=== PATIENT | female | born 1940 | race Caucasian/White ===

== ENCOUNTER → 2017-10-06 | Outpatient (CLI) | payer MEDICARE ==
[~2017-10-06] MED LIST: ASPI-1012 PO; CALC-1038 PO; CALC-911 PO; FLAX1000 PO; HYDR-2132 PO; LEVO50TA11 PO; TRAM50TA4 PO; VITA400C70 PO
== END ==
LOC: OIH 11:34
PROVIDERS: ATTEND Internal Medicine
DX: S72.002A Fracture of unspecified part of neck of left femur, initial encounter for closed fracture (principal); R10.2 Pelvic and perineal pain; X58.XXXA Exposure to other specified factors, initial encounter; Y93.89 Activity, other specified; Y92.89 Other specified places as the place of occurrence of the external cause; Y99.8 Other external cause status
CPT/HCPCS: 73502; 73560

== ENCOUNTER 2017-10-12 15:42 | Inpatient (IN) | payer MEDICARE ==
[~2017-10-12] VITALS: Ht 152.4 cm; Wt 61.3 kg
[2017-10-12 16:34] LABS: BASOPHILS % (AUTO) 1.4 % (0.0-5.0); EOSINOPHILS % (AUTO) 3.6 % (0.0-8.0); HEMATOCRIT 34.3 % (36-48); LYMPHOCYTES % (AUTO) 20.7 % (21.0-51.0); MEAN CORPUSCULAR HEMOGLOBIN 33.5 pg (27.0-33.0); MEAN CORPUSCULAR HGB CONC 36.6 g/dL (32.0-36.0); MEAN CORPUSCULAR VOLUME 91.5 fL (79-99); NEUTROPHILS % (AUTO) 66.3 % (40.0-77.0); PLATELET COUNT (AUTO) 322 K/uL (130-400); RED BLOOD CELL COUNT(AUTO) 3.75 MIL/uL (4.00-5.50); RED CELL DISTRIBUTION WIDTH 13.5 % (11.0-15.5); WHITE BLOOD COUNT (AUTO) 5.4 K/uL (4.8-10.8)
[2017-10-12 16:41] LABS: CREATININE 0.9 mg/dL (0.5-1.5); POTASSIUM 3.3 mmol/L (3.5-5.1)
[2017-10-12 17:00] LABS: INR 0.96 (0.85-1.15); PARTIAL THROMBOPLASTIN TIME 26.1 SEC (26.3-35.5); PROTHROMBIN TIME 10.1 SEC (9.6-11.6)
[2017-10-12] MEDS ORDERED: TRAMADOL HCL 50 MG TABLET ONE (17:38)
[2017-10-12] MEDS ORDERED: ACETAMINOPHEN EXTRA STRENGTH 500 MG TABLET ONE (21:01)
[2017-10-12 22:24] VITALS: BP 135/77
[2017-10-12] MEDS ORDERED: HYDROMORPHONE HCL 0.5 MG/0.5 ML ML ONE (23:46)
[2017-10-13] VITALS (20 sets, daily range): BP systolic 112–143; BP diastolic 56–84
[2017-10-13] MEDS ORDERED: ONDANSETRON HCL 4 MG/2 ML VIAL IVP PRN (01:00)
[2017-10-13] MEDS ORDERED: ACETAMINOPHEN EXTRA STRENGTH 500 MG TABLET PO PRN (01:00)
[2017-10-13] MEDS: HYDROMORPHONE HCL 0.5 MG/0.5 ML ML IVP PRN ×3 (04:23→18:07)
[2017-10-13] MEDS ORDERED: CALC-1038 PO (04:48)
[2017-10-13] MEDS ORDERED: VITA400C70 PO (04:48)
[2017-10-13] MEDS ORDERED: FLAX1000 PO (04:48)
[2017-10-13] MEDS ORDERED: LEVO50TA11 PO (04:48)
[2017-10-13] MEDS ORDERED: TRAM50TA4 PO (04:48)
[2017-10-13] MEDS ORDERED: TRAMADOL HCL 50 MG TABLET PO PRN (05:00)
[2017-10-13] MEDS: TRANEXAMIC ACID 1,000 MG in SODIUM CHLORIDE 0.9% 100 ML IV SCH ×2 (06:00→20:16)
[2017-10-13 06:09] LABS: INR 0.97 (0.85-1.15); PARTIAL THROMBOPLASTIN TIME 26.8 SEC (26.3-35.5); PROTHROMBIN TIME 10.2 SEC (9.6-11.6)
[2017-10-13 06:10] LABS: HEMATOCRIT 34.6 % (36-48); MEAN CORPUSCULAR HEMOGLOBIN 32.6 pg (27.0-33.0); MEAN CORPUSCULAR HGB CONC 35.1 g/dL (32.0-36.0); MEAN CORPUSCULAR VOLUME 92.9 fL (79-99); PLATELET COUNT (AUTO) 310 K/uL (130-400); RED BLOOD CELL COUNT(AUTO) 3.72 MIL/uL (4.00-5.50); RED CELL DISTRIBUTION WIDTH 13.9 % (11.0-15.5)
[2017-10-13 06:21] LABS: CREATININE 0.8 mg/dL (0.5-1.5); POTASSIUM 3.4 mmol/L (3.5-5.1)
[2017-10-13] MEDS ORDERED: POTASSIUM CHLORIDE 20MEQ/100ML 100 ML IV PRN ×2 (06:45→16:00)
[2017-10-13] MEDS ORDERED: LIDOCAINE HCL-MPF 1% 2ML VIAL IVP PRN ×2 (06:45→16:00)
[2017-10-13] MEDS: LEVOTHYROXINE 50 MCG TABLET PO SCH (07:30)
[2017-10-13] MEDS ORDERED: SODIUM CHLORIDE 0.9% 1000ML 1,000 ML IV ONE (08:12)
[2017-10-13] MEDS ORDERED: CALC-911 PO (08:57)
[2017-10-13] MEDS ORDERED: CALCIUM CARBONATE 500 MG TABLET PO SCH (09:00)
[2017-10-13] MEDS: FLAXSEED OIL 1000 MG PO SCH (09:00)
[2017-10-13] MEDS: CALCIUM 600 + VITAMIN D 400 TABLET PO SCH (09:00)
[2017-10-13] MEDS: VITAMIN E 400 UNIT CAPSULE PO SCH (09:00)
[2017-10-13] MEDS: CEFAZOLIN SODIUM 1 GM VIAL IVP SCH ×3 (12:00→21:16)
[2017-10-13] MEDS ORDERED: LACTATED RINGERS 1000ML 1,000 ML IV ONE (12:32)
[2017-10-13] MEDS ORDERED: SUCCINYLCHOLINE 200MG/10ML SYR ONE (13:02)
[2017-10-13] MEDS ORDERED: ONDANSETRON HCL 4 MG/2 ML VIAL ONE (13:02)
[2017-10-13] MEDS ORDERED: LIDOCAINE PF 2% 5ML ABBOJECT ONE (13:02)
[2017-10-13] MEDS ORDERED: GLYCOPYRROLATE 0.2 MG/ML 5 ML VIAL ONE (13:02)
[2017-10-13] MEDS ORDERED: DEXAMETHASONE SOD PHOSPHATE 10MG/ML 1ML VIAL ONE (13:02)
[2017-10-13] MEDS ORDERED: PROPOFOL 10 MG/ML 20ML VIAL IV ONE (13:03)
[2017-10-13] MEDS ORDERED: MIDAZOLAM HCL 1 MG/ML 2ML VIAL ONE ×2 (13:03→13:41)
[2017-10-13] MEDS ORDERED: FENTANYL CITRATE PF 50 MCG/1 ML 2ML VIAL ONE (13:04)
[2017-10-13] MEDS ORDERED: CEFAZOLIN SODIUM 1 GM VIAL ONE (13:06)
[2017-10-13] MEDS ORDERED: TRANEXAMIC ACID 1000MG/10ML IV ONE (13:06)
[2017-10-13] MEDS ORDERED: ROPIVACAINE 0.5% 5MG/ML 30ML IJ ONE (13:17)
[2017-10-13] MEDS: SODIUM CHLORIDE 0.9% 1000ML 1,000 ML IV SCH (15:54)
[2017-10-13] MEDS ORDERED: KETOROLAC TROMETHAMINE 15MG/ML IV PRN (16:00)
[2017-10-13] MEDS ORDERED: PROMETHAZINE HCL 25 MG/ML 1ML AMPULE IM PRN (16:00)
[2017-10-13] MEDS ORDERED: DiphenhydrAMINE HCL 50 MG/ML VIAL IVP PRN (16:00)
[2017-10-13] MEDS ORDERED: POTASSIUM CHLORIDE 20 MEQ ERTAB PO PRN (16:00)
[2017-10-13] MEDS ORDERED: FERROUS FUMARATE 324 MG TABLET PO PRN (16:00)
[2017-10-13] MEDS ORDERED: HYDROCODONE/ACETAMINOPHEN 5/325 MG TAB PO PRN (16:00)
[2017-10-13] MEDS ORDERED: DIPHENHYDRAMINE HCL 25 MG CAPSULE PO PRN (16:00)
[2017-10-13] MEDS ORDERED: CALCIUM CARBONATE 500 MG TABLET PO PRN (16:00)
[2017-10-13] MEDS ORDERED: TEMAZEPAM 15 MG CAPSULE PO PRN (16:00)
[2017-10-13] MEDS ORDERED: POTASSIUM CHLORIDE 10% ELIXIR 20 MEQ/15 ML UDCUP PO PRN (16:00)
[2017-10-13] MEDS ORDERED: MEPERIDINE-PF 50 MG/ML SYG ONE (16:24)
[2017-10-13] MEDS: CELECOXIB 200 MG CAP PO SCH (21:00)
[2017-10-13] MEDS: ASPIRIN 325 MG TABLET PO SCH (21:00)
[2017-10-13] MEDS ORDERED: CEFAZOLIN 2GM / 50 ML 50 ML IV SCH (21:00)
[2017-10-13] MEDS: FAMOTIDINE 20MG TAB 20 MG TAB PO SCH (21:16)
[2017-10-13] MEDS: HYDROCODONE/ACETAMINOPHEN 5/325 MG TAB PO PRN (21:19)
[2017-10-14 00:21] VITALS: BP 127/67
[2017-10-14] MEDS: SODIUM CHLORIDE 0.9% 1000ML 1,000 ML IV SCH ×2 (02:18→11:54)
[2017-10-14 04:00] VITALS: BP 138/83
[2017-10-14] MEDS: HYDROCODONE/ACETAMINOPHEN 5/325 MG TAB PO PRN (05:06)
[2017-10-14] MEDS: LEVOTHYROXINE 50 MCG TABLET PO SCH (05:07)
[2017-10-14] MEDS: CEFAZOLIN SODIUM 1 GM VIAL IVP SCH (05:14)
[2017-10-14 05:37] LABS: HEMATOCRIT 32.3 % (36-48); MEAN CORPUSCULAR HEMOGLOBIN 33.7 pg (27.0-33.0); MEAN CORPUSCULAR HGB CONC 36.5 g/dL (32.0-36.0); MEAN CORPUSCULAR VOLUME 92.3 fL (79-99); NUCLEATED RED BLOOD CELLS 0.1 % (0.0-0.19); PLATELET COUNT (AUTO) 289 K/uL (130-400); RED CELL DISTRIBUTION WIDTH 13.4 % (11.0-15.5); WHITE BLOOD COUNT (AUTO) 8.5 K/uL (4.8-10.8)
[2017-10-14 05:48] LABS: CREATININE 0.8 mg/dL (0.5-1.5); POTASSIUM 3.6 mmol/L (3.5-5.1)
[2017-10-14] MEDS ORDERED: HYDROMORPHONE PCA 10 MG/50 ML 50 ML IV PRN (08:30)
[2017-10-14] MEDS ORDERED: NALOXONE HCL 0.4 MG/1 ML ML IVP PRN (08:30)
[2017-10-14] MEDS: ASPIRIN 325 MG TABLET PO SCH ×2 (08:44→21:08)
[2017-10-14] MEDS: CELECOXIB 200 MG CAP PO SCH ×2 (08:44→21:09)
[2017-10-14] MEDS: CALCIUM 600 + VITAMIN D 400 TABLET PO SCH (08:46)
[2017-10-14] MEDS: VITAMIN E 400 UNIT CAPSULE PO SCH (08:46)
[2017-10-14] MEDS: FAMOTIDINE 20MG TAB 20 MG TAB PO SCH ×2 (08:47→21:09)
[2017-10-14] MEDS: POLYETHYLENE GLYCOL 3350 17 GM POWD.PACK PO SCH (08:47)
[2017-10-14] MEDS: POTASSIUM CHLORIDE 20 MEQ ERTAB PO PRN ×2 (08:47→18:04)
[2017-10-14] MEDS: FLAXSEED OIL 1000 MG PO SCH (08:48)
[2017-10-14] MEDS: HYDROMORPHONE HCL 0.5 MG/0.5 ML ML IVP PRN (08:49)
[2017-10-14 08:50] VITALS: BP 120/57
[2017-10-14 11:54] VITALS: BP 116/64
[2017-10-14] MEDS: PSYLLIUM SEED 1 EACH PACKET PO SCH (12:50)
[2017-10-14 16:27] VITALS: BP 100/51
[2017-10-14 19:43] VITALS: BP 95/50
[2017-10-14] MEDS: TRANEXAMIC ACID 1,000 MG in SODIUM CHLORIDE 0.9% 100 ML IV SCH (20:07)
[2017-10-15] VITALS: BP 110/63
[2017-10-15] MEDS ORDERED: SODIUM CHLORIDE 0.9% 500ML 500 ML IV ONE (02:31)
[2017-10-15 04:24] VITALS: BP 117/71
[2017-10-15] MEDS: LEVOTHYROXINE 50 MCG TABLET PO SCH (06:36)
[2017-10-15 07:30] VITALS: BP 122/64
[2017-10-15] MEDS: POTASSIUM CHLORIDE 10% ELIXIR 20 MEQ/15 ML UDCUP PO PRN ×2 (08:48→12:16)
[2017-10-15] MEDS: POLYETHYLENE GLYCOL 3350 17 GM POWD.PACK PO SCH (08:48)
[2017-10-15] MEDS: VITAMIN E 400 UNIT CAPSULE PO SCH (08:48)
[2017-10-15] MEDS: FAMOTIDINE 20MG TAB 20 MG TAB PO SCH ×2 (08:49→20:23)
[2017-10-15] MEDS: CALCIUM 600 + VITAMIN D 400 TABLET PO SCH (08:49)
[2017-10-15] MEDS: CELECOXIB 200 MG CAP PO SCH ×2 (08:49→20:23)
[2017-10-15] MEDS: ASPIRIN 325 MG TABLET PO SCH ×2 (08:49→20:23)
[2017-10-15] MEDS: FLAXSEED OIL 1000 MG PO SCH (08:50)
[2017-10-15 11:00] VITALS: BP 102/68
[2017-10-15] MEDS: PSYLLIUM SEED 1 EACH PACKET PO SCH (12:15)
[2017-10-15 16:00] VITALS: BP 108/63
[2017-10-15] MEDS ORDERED: BISACODYL 5 MG TABLET.DR PO PRN (16:00)
[2017-10-15 20:33] VITALS: BP 111/66
[2017-10-16] VITALS: BP 117/68
[2017-10-16 04:00] VITALS: BP 120/65
[2017-10-16] MEDS: TRANEXAMIC ACID 1,000 MG in SODIUM CHLORIDE 0.9% 100 ML IV SCH (05:36)
[2017-10-16] MEDS: LEVOTHYROXINE 50 MCG TABLET PO SCH (06:50)
[2017-10-16 07:36] VITALS: BP 129/71
[2017-10-16] MEDS ORDERED: SODIUM CHLORIDE 0.9% 1000ML 1,000 ML IV ONE (08:21)
[2017-10-16] MEDS: CALCIUM 600 + VITAMIN D 400 TABLET PO SCH (08:23)
[2017-10-16] MEDS: ASPIRIN 325 MG TABLET PO SCH (08:23)
[2017-10-16] MEDS: CELECOXIB 200 MG CAP PO SCH (08:23)
[2017-10-16] MEDS: FAMOTIDINE 20MG TAB 20 MG TAB PO SCH (08:24)
[2017-10-16] MEDS: VITAMIN E 400 UNIT CAPSULE PO SCH (08:24)
[2017-10-16] MEDS: POLYETHYLENE GLYCOL 3350 17 GM POWD.PACK PO SCH (08:24)
[2017-10-16] MEDS: FLAXSEED OIL 1000 MG PO SCH (08:24)
[2017-10-16] MEDS: POTASSIUM CHLORIDE 20 MEQ ERTAB PO PRN (08:29)
[2017-10-16] MEDS ORDERED: POTASSIUM CHLORIDE 20 MEQ ERTAB PO SCH (08:30)
[2017-10-16 11:02] VITALS: BP 115/67
[2017-10-16] MEDS: PSYLLIUM SEED 1 EACH PACKET PO SCH (11:37)
[2017-10-16] MEDS ORDERED: HYDR-2132 PO (12:58)
[2017-10-16] MEDS ORDERED: ASPI-1012 PO (12:58)
[2017-10-16 15:49] VITALS: BP 120/73
[2017-10-16] MEDS ORDERED: BISACODYL 10 MG SUPP.RECT RC PRN (16:00)
== END 2017-10-16 17:10 | DRG 470 ==
LOC: EDH 15:42 → EDHIP 15:43 → 4AH 22:22
PROVIDERS: ADMIT Orthopaedic Surgery; ATTEND Orthopaedic Surgery
PROC: 0SRS0JZ Replacement of Left Hip Joint, Femoral Surface with Synthetic Substitute, Open Approach (ICD-10-PCS; principal; 2017-10-13 13:42)
DX: S72.002A Fracture of unspecified part of neck of left femur, initial encounter for closed fracture (principal); E03.9 Hypothyroidism, unspecified; E87.6 Hypokalemia; I10 Essential (primary) hypertension; M81.0 Age-related osteoporosis without current pathological fracture
CPT/HCPCS: 36415; 73503; 80048; 85025; 85027; 85610; 85730; 86850; 86900; 86901; 88305; 88311; 93005; 97039; A4218; A4344; C1776; J0330; J0690; J1100; J1170; J1885; J2001; J2175; J2250; J2405; J2704; J2795; J3010; J3480; J3490; J7030; J7040; J7120

== ENCOUNTER 2018-11-29 05:50 | Day surgery (SDC) | payer MEDICARE ==
[2018-11-28 10:09] VITALS: BP 126/57
[2018-11-28 10:12] LABS: BASOPHILS % (AUTO) 0.8 % (0.0-5.0); EOSINOPHILS % (AUTO) 5.7 % (0.0-8.0); HEMATOCRIT 33.8 % (36-48); LYMPHOCYTES % (AUTO) 26.4 % (21.0-51.0); MEAN CORPUSCULAR HEMOGLOBIN 30.3 pg (27.0-33.0); MEAN CORPUSCULAR HGB CONC 33.4 g/dL (32.0-36.0); MONOCYTES % (AUTO) 8.9 % (3.0-13.0); NEUTROPHILS % (AUTO) 58.2 % (40.0-77.0); NUCLEATED RED BLOOD CELLS 0.1 % (0.0-0.19); PLATELET COUNT (AUTO) 280 K/uL (130-400); RED BLOOD CELL COUNT(AUTO) 3.72 MIL/uL (4.00-5.50); WHITE BLOOD COUNT (AUTO) 6.5 K/uL (4.8-10.8)
[2018-11-28 10:21] LABS: CREATININE 0.7 mg/dL (0.5-1.5)
[~2018-11-29] VITALS: Ht 142.2 cm; Wt 51.9 kg
[2018-11-29] VITALS (17 sets, daily range): BP systolic 103–137; BP diastolic 46–88
[~2018-11-29 05:50] MED LIST changes: -ASPI-1012 PO; -CALC-1038 PO; +CALC-1205 PO; -CALC-911 PO; +CALC3.8S NS; +CHOL50004 PO; -FLAX1000 PO; +GABA-531 PO; -HYDR-2132 PO; +HYDR-4068 PO; -LEVO50TA11 PO; +LEVO75TA10 PO; -TRAM50TA4 PO
[2018-11-29] MEDS ORDERED: LIDOCAINE PF 2% 5ML ABBOJECT ONE (06:52)
[2018-11-29] MEDS ORDERED: LIDOCAINE HCL 1% MDV 50ML VIAL ONE (06:52)
[2018-11-29] MEDS ORDERED: DEXAMETHASONE SOD PHOSPHATE 10MG/ML 1ML VIAL ONE (06:53)
[2018-11-29] MEDS ORDERED: PROPOFOL 10 MG/ML 20ML VIAL IV ONE (06:53)
[2018-11-29] MEDS ORDERED: THROMBIN-JMI 20000 UNIT KIT TP ONE (06:53)
[2018-11-29] MEDS ORDERED: BACITRACIN 50,000 UNIT VIAL ONE (06:53)
[2018-11-29] MEDS ORDERED: ONDANSETRON HCL 4 MG/2 ML VIAL ONE (06:54)
[2018-11-29] MEDS ORDERED: FENTANYL CITRATE PF 50 MCG/1 ML 2ML VIAL ONE ×2 (06:54→08:13)
[2018-11-29] MEDS ORDERED: MIDAZOLAM HCL 1 MG/ML 2ML VIAL ONE ×2 (06:54→08:22)
[2018-11-29] MEDS ORDERED: LIDOCAINE HCL/EPINEPHRINE 50 ML VIAL IJ ONE (06:56)
[2018-11-29] MEDS: CEFAZOLIN SODIUM 1 GM VIAL IVP SCH ×2 (07:00→08:01)
[2018-11-29] MEDS ORDERED: LACTATED RINGERS 1000ML 1,000 ML IV ONE (07:08)
--- NOTE | 2018-11-29 09:29 | NUR ---
PATIENT RETURNED FROM PACU IN NO DISTRESS. LOWER BACK DRESSING IS CLEAN AND DRY. BOTH PATIENT AND FAMILY MEMBER INSTRUCTED ON BEING ON BEDREST FOR 4 HOURS. PATIENT AND FAMILY VERBALIZED UNDERSTANDING AND AGREED TO COMPLY.CALL [facility] WITH IN REACH AND ENCOURAGED TO CALL.
--- NOTE | 2018-11-29 10:30 | NUR ---
NO SIGNS OF BLEEDING TO BACK AT PUNCTURE SITE. NO ACTIVE BLEEDING OR HEMATOMA.PATIENT CONTINUES ON BEDREST. CALL [facility] WITHIN REACH.
--- NOTE | 2018-11-29 11:45 | NUR ---
PATIENT COMPLAINT OF BACK PAIN OF 8, CALLED [facility], ORDERS RECEIVED TO MEDICATE FOR PAIN. ORDERS CARRIED OUT.
[2018-11-29] MEDS ORDERED: KETOROLAC TROMETHAMINE 60 MG/2 ML VIAL ONE (11:47)
[2018-11-29] MEDS ORDERED: KETOROLAC TROMETHAMINE 30MG/ML IV SCH (12:30)
--- NOTE | 2018-11-29 12:50 | NUR ---
PATIENT ASSISTED UP TO CHAIR AND ASSISTED TO CHANGE INTO HER CLOTHES. BACK SITE DRESSING WAS CHANGED, NO SIGNS OF BLEEDING OR HEMATOMA. PATIENT STATES FEELING FINE IN NO PAIN.
--- NOTE | 2018-11-29 13:05 | NUR ---
PATIENT DISCHARGED VIA WHEELCHAIR IN NO DISTRESS WITH HER SPOUSE. PATIENT DENIES ANY PAIN OR DISCOMFORT.
== END 2018-11-29 13:05 | disposition home or self-care (01) ==
LOC: DAH 05:50 → SUH 05:50
PROVIDERS: ATTEND Neurological Surgery
DX: S32.018A Other fracture of first lumbar vertebra, initial encounter for closed fracture (principal); X58.XXXA Exposure to other specified factors, initial encounter; Y93.9 Activity, unspecified; Y92.89 Other specified places as the place of occurrence of the external cause; Y99.9 Unspecified external cause status; M54.5 Low back pain; E07.9 Disorder of thyroid, unspecified
CPT/HCPCS: 22511; 36415; 72110; 80048; 85025; A4215; A4218; C1776; J0690; J1100; J1885; J2001; J2250 ×2; J2405; J2704; J3010 ×2; J7120 ×2; 77002; J3490